=== PATIENT | male | born 1990 | race Caucasian/White ===

== ENCOUNTER 2024-10-02 15:09 | Emergency (ER) | payer BC ==
[~2024-10-02] VITALS: Ht 182.9 cm; Wt 73.9 kg
[2024-10-02] MEDS ORDERED: ACETAMINOPHEN ES 500 MG TABLET ONE (16:19)
[2024-10-02] MEDS: ACETAMINOPHEN ES 500 MG TABLET PO ONE (16:23)
[2024-10-02 16:55] LABS: BASOPHILS % (AUTO) 0.4 % (0.0-2.0); EOSINOPHILS # (AUTO) 0.1 K/uL (0.0-0.7); EOSINOPHILS % (AUTO) 1.4 % (0.0-6.0); HEMATOCRIT 48 % (39-51); HEMOGLOBIN 16.1 g/dL (13.5-17.5); LYMPHOCYTES # (AUTO) 1.1 K/uL (0.8-4.8); LYMPHOCYTES % (AUTO) 16.8 % (20.0-44.0); MEAN CORPUSCULAR HEMOGLOBIN 29 PG (26.0-33.0); MEAN CORPUSCULAR HGB CONC 34 g/dl (31.0-36.0); MEAN CORPUSCULAR VOLUME 86 fL (80-96); MONOCYTES # (AUTO) 0.8 K/uL (0.1-1.30); MONOCYTES % (AUTO) 11.5 % (2.0-12.0); NEUTROPHILS # (AUTO) 4.7 K/uL (1.8-8.9); NEUTROPHILS % (AUTO) 69.9 % (43.0-81.0); PLATELET COUNT (AUTO) 202 K/uL (150-450); RED BLOOD CELL COUNT(AUTO) 5.56 MIL/uL (4.5-6.0); RED CELL DISTRIBUTION WIDTH 13.1 % (11.5-15.0); WHITE BLOOD COUNT (AUTO) 6.7 K/uL (4.3-11.0)
[2024-10-02 17:02] LABS: CALCIUM, SERUM 9.3 mg/dL (8.5-10.1); CREATININE 1.1 mg/dL (0.6-1.3)
[2024-10-02 17:08] LABS: ALBUMIN 4.7 g/dL (3.4-5.0); BILIRUBIN,TOTAL 0.8 mg/dL (0.2-1.0); TOTAL PROTEIN, SERUM 7.5 g/dL (6.4-8.2)
[2024-10-02 17:19] LABS: APPEARANCE,URINE CLEAR (CLEAR); BILIRUBIN,URINE NEGATIVE (NEGATIVE); BLOOD, URINE NEGATIVE Ery/uL (NEGATIVE); COLOR,URINE YELLOW (YELLOW); KETONES,URINE 1+ mg/dL (NEGATIVE); LEUKOCYTE ESTERASE ,URINE NEGATIVE (NEGATIVE); NITRITE, URINE NEGATIVE (NEGATIVE); PH,URINE 6.5 (5.0-8.0); PROTEIN,URINE TRACE mg/dl (NEGATIVE); UGLUCOSE NEGATIVE (NEGATIVE); UROBILINOGEN,URINE 0.2 EU/dL (0.2)
[2024-10-02] MEDS ORDERED: IV NS 0.9% 250 ML IV ONE (17:39)
[2024-10-02] MEDS ORDERED: IOHEXOL-300 100 ML VIAL IV ONE (17:39)
[2024-10-02 18:14] LABS: ADD URINE CULTURE NO; BACTERIA,URINE None seen /HPF (None Seen); MUCUS,URINE Few /LPF (None Seen); RBC,URINE 0-2 /HPF (0-2); SQUAMOUS EPITHELIAL CELL,UR 0-2 /HPF (None Seen); WBC,URINE 0-2 /HPF (0-3)
[2024-10-02] MEDS ORDERED: LORAZEPAM 4 MG/ML VIAL IM ONE (18:30)
[2024-10-02] MEDS ORDERED: LORAZEPAM INJ 2 MG/ML VIAL ONE (18:36)
[2024-10-02] MEDS: LORAZEPAM INJ 2 MG/ML VIAL IV ONE (18:58)
[2024-10-02] MEDS ORDERED: DOXY-326 PO (19:41)
[2024-10-02] MEDS ORDERED: CEFTRIAXONE 500 MG VIAL ONE (20:12)
[2024-10-02] MEDS ORDERED: DOXYCYCLINE HYCLATE (100 MG) 100 MG TABLET ONE (20:12)
[2024-10-02] MEDS: CEFTRIAXONE 500 MG VIAL IM ONE (20:19)
[2024-10-02] MEDS: DOXYCYCLINE HYCLATE (100 MG) 100 MG TABLET PO ONE (20:19)
[2024-10-02 21:03] VITALS: BP 104/66; TEMP 98.5; O2SAT 98
[2024-10-05 02:07] LABS: CHLAMYDIA TRACHOMATIS NAA Negative (Negative); NEISSERIA GONORRHOEAE NAA Negative (Negative)
== END 2024-10-02 21:05 | disposition home or self-care (01) ==
LOC: ER 15:17
DX: R10.84 Generalized abdominal pain (principal); N50.812 Left testicular pain; Z20.2 Contact with and (suspected) exposure to infections with a predominantly sexual mode of transmission
CPT/HCPCS: 99285; 70450; 96374; 71045; 74177; 85025; 83690; 81001; 36415; 80053; 84146; 87491; 87591; 96372; J2060 ×2; J0696; J7050; Q9967